=== PATIENT | male | born 1985 | race Caucasian/White ===

== ENCOUNTER 2020-01-21 17:16 | Emergency (ER) | payer OTHER, SELFPAY ==
[2020-01-21 17:27] VITALS: BP 135/84; PULSE 66; RESP 14; TEMP 37.3; O2SAT 99
[2020-01-21] MEDS: KETOROLAC 60 MG/2 ML VIAL IM (19:03)
[2020-01-21 19:33] VITALS: BP 138/80; PULSE 73; RESP 16; O2SAT 99
--- NOTE | 2020-01-21 19:47 | ED_ITS ---
HPI - Wound/Laceration <ARTURO Luz - Last Filed: 01/21/20 19:50> General Chief Complaint: Wound/Laceration Stated Complaint: left middle finger cut thinks infected Time Seen by Provider: 01/21/20 18:30 Source: patient Mode of arrival: Ambulatory Limitations: no limitations History of Present Illness HPI narrative: The patient is a 34-year-old male nonsmoker who presents with a summa health complaint of a left middle finger laceration that he thinks is infected. 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 He did not wash it out. He states his tetanus is up-to-date. Over the past few days has been coming increasingly swollen and red. No drainage noted. Patient denies any fevers nausea vomiting or diarrhea. He took some ibuprofen for yesterday. Related Data Previous Rx's Medication Instructions Recorded cephalexin 500 mg PO QID #40 cap 01/21/20 ketorolac 10 mg PO TID PRN #14 tab 01/21/20 Allergies Allergy/AdvReac Type Severity Reaction Status Date / Time No Known Drug Allergies Allergy Verified 01/21/20 19:03 Review of Systems <ARTURO Luz - Last Filed: 01/21/20 19:50> Review of Systems Narrative: GENERAL: Denies chills, fatigue, malaise, fever, sweats. HEENT: Denies sinus pain, ear pain, sore throat, difficulty swallowing, dizziness. RESPIRATORY: Denies dyspnea, cough, wheezing, hemoptysis, sputum. CARDIOVASCULAR: Denies chest pain, palpitations, orthopnea, edema, GASTROINTESTINAL: Denies nausea, vomiting, abdominal pain, diarrhea, constipation, melena. : Denies dysuria, frequency, incontinence, hematuria, urinary retention. MUSCULOSKELETAL: denies weakness, joint pain, or bony pain SKIN: See HPI NEUROLOGIC: Denies weakness, headache, numbness, change in speech, confusion, seizures, incoordination. PSYCHIATRIC: No concerning psychosocial issues. 12 point review of systems is negative except for those stated above Exam <ARTURO Luz - Last Filed: 01/21/20 19:50> Narrative Exam Narrative: GENERAL: This is a well-nourished, well-developed patient, in no acute distress HEAD: Atraumatic. Normocephalic. No temporal or scalp tenderness. EYES: Pupils equal round and reactive. Extraocular motions intact. No scleral icterus. No injection or drainage. ENT: Nose without bleeding, purulent drainage or septal hematoma. Airway patent. NECK: Trachea midline. No JVD or lymphadenopathy. Supple, nontender, no meningeal signs. CARDIOVASCULAR: Regular rate and rhythm RESPIRATORY: No cough. No increasedrespiratory effort. No accessory muscle use EXTREMITIES: 0.5 cm abrasion noted on dorsum of left middle finger over PIP joint. Slight surrounding erythema and swelling. Able to flex and extend left middle finger against resistance. Decreased range of motion all silva. BACK: Nontender without deformity or crepitance. No flank tenderness. NEURO: AOx3. SKIN: See extremity exam Initial Vital Signs Initial Vital Signs: Vital Signs Temperature 99.1 F 01/21/20 17:27 Pulse Rate 66 01/21/20 17:27 Respiratory Rate 14 01/21/20 17:27 Blood Pressure 135/84 01/21/20 17:27 Pulse Oximetry 99 01/21/20 17:27 <DO Giles Renee Last Filed: 01/21/20 20:32> Initial Vital Signs Initial Vital Signs: Vital Signs Temperature 99.1 F 01/21/20 17:27 Pulse Rate 66 01/21/20 17:27 Respiratory Rate 14 01/21/20 17:27 Blood Pressure 135/84 01/21/20 17:27 Pulse Oximetry 99 01/21/20 17:27 Course <KISHAN Luz - Last Filed: 01/21/20 19:50> Orders Ordered: Discontinued Medications Ketorolac Tromethamine (Toradol) 60 mg IM NOW ONE Stop: 01/21/20 18:48 Last Admin: 01/21/20 19:03 Dose: 30 mg Documented by: JULIA Vital Signs Vital signs: Vital Signs - 8 hr 01/21/20 17:27 01/21/20 19:33 Temperature 99.1 F Pulse Rate 66 73 Respiratory Rate 14 16 Blood Pressure 135/84 Blood Pressure [Left Arm] 138/80 Pulse Oximetry 99 99 <DO Giles Renee Last Filed: 01/21/20 20:32> Orders Ordered: Discontinued Medications Ketorolac Tromethamine (Toradol) 60 mg IM NOW ONE Stop: 01/21/20 18:48 Last Admin: 01/21/20 19:03 Dose: 30 mg Documented by: JULIA Vital Signs Vital signs: Vital Signs - 8 hr 01/21/20 17:27 01/21/20 19:33 Temperature 99.1 F Pulse Rate 66 73 Respiratory Rate 14 16 Blood Pressure 135/84 Blood Pressure [Left Arm] 138/80 Pulse Oximetry 99 99 MDM - Wound/Laceration <ARTURO Luz - Last Filed: 01/21/20 19:50> [facility] Narrative Medical decision making narrative: The patient is a 34-year-old male who presents with a chief complaint of a infected cut on his left middle finger. Exam correlates with his concerns. Tetanus is up-to-date. Patient declines x- ray. Patient was given Toradol in the emergency department felt improved. Patient and was started on Keflex. Discussed at length monitoring for signs of worsening infection, coming back to the emergency department for any acute concerns as well as follow-up with primary care provider. Patient has no questions or concerns upon discharge and states understanding return precautions as well as follow-up care. Discharge Plan Departure Patient Disposition: Home Clinical Impression: Infected wound Discharge Date/Time: 01/21/20 19:56 Instructions: DI for Wound Infection Activity Restrictions/Additional Instructions: Thank you for trusting us with your care today. I sent 2 prescriptions to [facility]. One is an antibiotic. The other 1 is ketorolac. I have given you a prescription of Toradol. This is an NSAID. Do not combine it with other NSAIDs such as Aleve or ibuprofen. I suggest taking it with some food, as it can irritate your stomach. As discussed, please monitor for signs of worsening infection like extending redness and drainage. Please come back to the emergency department for any acute concerns. Please follow-up with primary care provider. I have given you contact information [facility] human resources operations director they can help you identify a PCP. Prescriptions: New cephalexin 500 mg capsule 500 mg PO QID Qty: 40 RF: 0 ketorolac 10 mg tablet 10 mg PO TID PRN (Reason: pain) Qty: 14 RF: 0 Referrals: [facility] [Outside] Stand Alone Forms: Work Release Note <Emery Lewis DO - Last Filed: 01/21/20 20:32> Cosign ED Attending Cosignature Attestation: Dr Lewis Co-Sign Statement: I was amol leon for consultation during this patient's emergency department visit. This chart is signed by myself for administrative purposes only. I did not have direct contact with this patient during this visit. They were seen independently by the APC.
== END 2020-01-21 19:56 | disposition home or self-care (01) ==
PROVIDERS: Emergency Provider Nurse Practitioner Family
DX: L08.9 Local infection of the skin and subcutaneous tissue, unspecified (principal)
CPT/HCPCS: 96372; 99282; 99283; J1885

== ENCOUNTER → 2020-02-12 12:27 | Outpatient (CLI) | payer OTHER, SELFPAY ==
[2020-02-15 12:11] LABS: COVID19 Sendout Not Detected (Not Detected)
== END ==
PROVIDERS: Visit Provider Physician Assistant
DX: Z11.59 Encounter for screening for other viral diseases (principal); J02.9 Acute pharyngitis, unspecified
CPT/HCPCS: 87635

== ENCOUNTER → 2020-04-29 13:09 | Outpatient (CLI) | payer OTHER, SELFPAY ==
[2020-04-30 20:44] LABS: COVID19 Sendout Not Detected (Not Detect)
== END ==
PROVIDERS: Visit Provider Nurse Practitioner
DX: Z11.59 Encounter for screening for other viral diseases (principal)
CPT/HCPCS: 87635

== ENCOUNTER 2020-12-31 11:18 | Emergency (ER) | payer OTHER, MEDICAID, SELFPAY ==
[2020-12-31 11:25] VITALS: BP 132/77; PULSE 82; RESP 19; TEMP 36.7; O2SAT 99
--- NOTE | 2020-12-31 11:52 | ED.GENADULT ---
HPI - General Adult General Chief complaint: Abdominal Pain Stated complaint: ABD PAIN X2 MONTHS. SENT BY [facility] Time Seen by Provider: 12/31/20 11:36 Source: patient Mode of arrival: Family Vehicle Limitations: no limitations History of Present Illness HPI narrative: Patient is an otherwise healthy 35-year-old male here for evaluation of bilateral upper abdominal and epigastric discomfort. He states that it has been going on for the past 2 months. [facility]. He states that while he was in [facility] he was not having any of the symptoms. Was until after he was released the symptoms started. It does seem to get better with food. He does have quite a bit of frothy sputum in his mouth when he wakes up in the morning. He is also having some green stools. When he has a bowel movement the symptoms seemed to improve but then it returns. He occasionally drinks alcohol. Denies any use of anti inflammatory drugs. He has never had an ulcer in the past. He was told that he potentially had gallbladder issues in the past but has never had a workup for this. No prior surgeries. Related Data Previous Rx's Medication Instructions Recorded amoxicillin 875 mg-potassium 1 tab PO BID #20 tab 02/12/20 clavulanate 125 mg tablet Allergies Allergy/AdvReac Type Severity Reaction Status Date / Time No Known Drug Allergies Allergy Verified 12/31/20 11:42 Review of Systems Constitutional Constitutional: Denies fever(s) Cardiovascular Cardiovascular: Denies chest pain and Denies dyspnea Respiratory Respiratory: Denies dyspnea Gastrointestinal Gastrointestinal: Reports abdominal pain and Denies vomiting Comments: Green color stools Genitourinary Genitourinary: Denies dysuria Genitourinary: Denies dysuria Musculoskeletal Musculoskeletal: Reports system reviewed and no additional complaints, except as documented Integumentary/Breasts Skin/Breast: Denies rash Neurologic Neurologic: Reports system reviewed and no additional complaints, except as documented Hematologic/Lymphatic On Anticoagulants: No Allergic/Immunologic Allergic/Immunologic: Reports system reviewed and no additional complaints, except as documented Patient History Medical History Sinusitis Social History Smoking Status: Current every day smoker Smoking Status: Current every day smoker tobacco type: vaping alcohol intake frequency: 0-2 drinks per day Substance Use Type: marijuana Exam Initial Vital Signs Initial Vital Signs: Vital Signs Temperature 98.0 F 12/31/20 11:25 Pulse Rate 82 12/31/20 11:25 Respiratory Rate 19 12/31/20 11:25 Blood Pressure 132/77 12/31/20 11:25 Pulse Oximetry 99 12/31/20 11:25 Const General: cooperative and comfortable Limitations: mental status not altered HENMT Head: normal to inspection and normocephalic Resp Effort & Inspection: normal respiratory effort Auscultation: clear to auscultation bilaterally Cardio Rate: regular rate Rhythm: regular rhythm GI Inspection: non-distended Palpation: soft and tender (Epigastric region) Skin Lesions: no lesions Rashes: no rashes Neuro General: patient alert and patient awake Cognition: normal cognition Speech: speech normal Extrem General: normal to inspection and capillary refill normal Psych Appearance: grossly normal and well kempt Course Orders Ordered: ED Orders 12/31/20 12:05 Complete Blood Count AUTO DIFF Stat Comprehensive Metabolic Panel Stat Lipase Stat Discontinued Medications Al Hydrox/Mg Hydrox/Simethicone 20 ml/ Lidocaine HCl 15 ml 0 ml PO NOW ONE Stop: 12/31/20 11:53 Last Admin: 12/31/20 12:17 Dose: 35 ml Documented by: LINDSEY Vital Signs Vital signs: Vital Signs - 8 hr 12/31/20 11:25 Temperature 98.0 F Pulse Rate 82 Respiratory Rate 19 Blood Pressure 132/77 Pulse Oximetry 99 Medical Decision Making Lab Data Lab results reviewed: Yes I reviewed the patient's lab results. Result diagrams: 12/31/20 12:05 12/31/20 12:05 Labs: Lab Results 12/31/20 12/31/20 Range/Units 12:05 12:05 WBC 4.8 (4.5-11.0) X10^3/uL RBC 4.88 (4.5-5.9) X10^6/uL Hgb 14.2 (13.5-17.5) g/dL Hct 42.3 (41-53) % MCV 86.6 (80-100) fL MCH 29.1 (26-34) PG MCHC 33.5 (30-36) % RDW 14.5 (11.6-14.8) % Plt Count 226 (150-400) X10^3/uL Neut % (Auto) 61.2 (50-75) % Lymph % (Auto) 30.1 (25-40) % Davis % (Auto) 7.0 (3-14) % Eos % (Auto) 0.8 L (2-4) % Baso % (Auto) 0.9 (0-2) % Neut # (Auto) 2900 (8643-4507) /uL Lymph # (Auto) 1400 (9372-6781) /uL Davis # (Auto) 300 (0-900) /uL Eos # (Auto) 0 (0-450) /uL Baso # (Auto) 0 (0-100) /uL Sodium 137 (137-145) mmol/L Potassium 4.3 (3.4-5.1) mmol/L Chloride 104 (98-107) mmol/L Carbon Dioxide 27 (22-32) mmol/L BUN 13 (9-20) mg/dL Creatinine 0.74 (0.66-1.25) mg/dL Estimated GFR > 60.0 (>60) mL/min BUN/Creatinine Ratio 17.6 (6-22) Glucose 100 (70-100) mg/dL Calcium 9.7 (8.4-10.2) mg/dL Total Bilirubin 0.4 (0.2-1.3) mg/dL AST 25 (17-59) IU/L ALT 15 (<50) IU/L Alkaline Phosphatase 43 (38-126) U/L Total Protein 7.4 (6.3-8.2) g/dL Albumin 4.5 (3.5-5.0) g/dL Globulin 2.9 (1.7-4.1) g/dL Albumin/Globulin Ratio 1.6 (1.0-2.8) Lipase 77 (23-300) U/L [facility] Narrative Medical decision making narrative: Patient's labs are unremarkable. He had minimal if any improvement with a GI cocktail however given his presentation today I do have a fairly high suspicion that his symptoms are ulcer/GI/reflux related. He is waking up with frothy sensation in his mouth. His symptoms are better with eating and then return. Has discomfort in the area or we would expect this. The plan will be is to start him on a proton pump inhibitor for the next 2 weeks. He is going to be moving to [place] so informed him that he should contact his insurance company and establish care with a provider up in [place] so that if his symptoms do not improve he could get a referral to see Gastroenterology and a upper endoscopy. He was given return precautions. He expressed understanding and agreement. Discharge Plan Departure Patient Disposition: Home Clinical Impression: Abdominal pain Instructions: DI for Abdominal Pain-Adult, DI for Gastric Ulcer Activity Restrictions/Additional Instructions: I recommend that you start on a medicine such as Nexium/Prilosec/omeprazole/esomeprazole. These medications are noticed proton pump inhibitors. You can purchase them [id number]. Start taking them as directed. I do recommend that you may contact with the primary doctor when you arrive in [place]. Especially if your symptoms are not improving. Return to the emergency department for any new symptoms. Prescriptions: No Action amoxicillin-pot clavulanate [Augmentin] 875-125 mg tablet 1 tab PO BID Qty: 20 RF: 0 Referrals: Miscellaneous,[facility] [Primary Care Provider] -
[2020-12-31 12:16] VITALS: PULSE 58; O2SAT 98
[2020-12-31 12:16] LABS: Add Manual Diff / Slide Review NO; Basophils Absolute Auto 0 /uL (0-100); Basophils Percent Auto 0.9 % (0-2); Eosinophils Absolute Auto 0 /uL (0-450); Eosinophils Percent Auto 0.8 % (2-4); Hematocrit 42.3 % (41-53); Hemoglobin 14.2 g/dL (13.5-17.5); Lymphocytes Absolute Auto 1400 /uL (1100-4500); Lymphocytes Percent Auto 30.1 % (25-40); Mean Corpuscular HGB Conc 33.5 % (30-36); Mean Corpuscular Hemoglobin 29.1 PG (26-34); Mean Corpuscular Volume 86.6 fL (80-100); Monocytes Absolute Auto 300 /uL (0-900); Neutrophils Absolute Auto 2900 /uL (1500-7000); Neutrophils Percent Auto 61.2 % (50-75); Platelet Count 226 X10^3/uL (150-400); Red Blood Cell Count 4.88 X10^6/uL (4.5-5.9); Red Cell Distribution Width 14.5 % (11.6-14.8); White Blood Cell Count 4.8 X10^3/uL (4.5-11.0)
[2020-12-31] MEDS: MAG HYDROX/ALUMINUM/SIMETH SUS 20 ML, LIDOCAINE VISCOUS 2% 15 ML PO (12:17)
[2020-12-31 12:26] LABS: Alanine Aminotransferase 15 IU/L (<50); Albumin 4.5 g/dL (3.5-5.0); Albumin Globulin Ratio 1.6 (1.0-2.8); Alkaline Phosphatase 43 U/L (38-126); Aspartate Aminotransferase 25 IU/L (17-59); BUN Creatinine Ratio 17.6 (6-22); Bilirubin Total 0.4 mg/dL (0.2-1.3); Blood Urea Nitrogen 13 mg/dL (9-20); Calcium 9.7 mg/dL (8.4-10.2); Carbon Dioxide 27 mmol/L (22-32); Chloride 104 mmol/L (98-107); Estimated Glomerular Filt Rate > 60.0 mL/min (>60); Globulin 2.9 g/dL (1.7-4.1); Glucose 100 mg/dL (70-100); HEMOLYSIS < 15 (0-50); Lipase 77 U/L (23-300); Potassium 4.3 mmol/L (3.4-5.1); Sodium 137 mmol/L (137-145); Total Protein 7.4 g/dL (6.3-8.2)
[2020-12-31 12:30] VITALS: BP 127/85; PULSE 63; O2SAT 96
== END 2020-12-31 12:55 | disposition home or self-care (01) ==
PROVIDERS: Emergency Provider Emergency Medicine
DX: R10.13 Epigastric pain (principal)
CPT/HCPCS: 36415; 80053; 83690; 85025; 99283